=== PATIENT | female | born 1935 | race Caucasian/White ===

== ENCOUNTER 2020-09-26 17:49 | Inpatient (IN) | payer OTHER ==
[~2020-09-26] VITALS: Ht 154.9 cm; Wt 77.3 kg
[~2020-09-26 17:49] MED LIST: ACETAMINOPHEN &1 TA1 PO; AMLODIPINE BESYL5 MG PO; ARIPIPRAZOLE2 MG PO; CIPRO500 MG PO; LOSARTAN POTAS100 M1 PO; LUMIGAN50 DRP OPH; MELATONIN5 M1 SL; NAPROXEN500 MG PO; OMEPRAZOLE D/R20 MG PO; OPANA ER20 M1 PO
[2020-09-26 17:59] VITALS: BP 183/88
[2020-09-26 18:27] LABS: BILIRUBIN Negative (Negative); BLOOD Negative (Negative); CLARITY Cloudy (Clear); COLOR Yellow (Yellow); GLUCOSE Negative (Negative); KETONE Negative (Negative); LEUKO ESTERASE 3+ (Negative); NITRITE Negative (Negative); SPECIFIC GRAVITY <= 1.005 (1.001-1.030); UROBILINOGEN 0.2 E.U./dl (0.0-1.0)
[2020-09-26 18:50] LABS: BASO # 0.1 10*3/uL (0.0-0.1); BASO % 0.6 % (0.0-1.0); EOS # 0.2 10*3/uL (0.0-0.4); EOS % 1.5 % (1.0-4.0); HEMATOCRIT 37.4 % (37.0-47.0); LYMPH # 3.4 10*3/uL (1.3-4.4); LYMPH % 33.2 % (27.0-41.0); MEAN CORPUSCULAR HGB 29.6 pg (27.0-31.0); MEAN CORPUSCULAR HGB CONC 31.8 g/dl (33.0-37.0); MEAN PLATELET VOLUME 10.1 fl (9.6-12.3); MONO # 0.8 10*3/uL (0.1-1.0); NEUT # 5.9 10*3/uL (2.3-7.9); NEUT % 56.5 % (47.0-73.0); PLATELET COUNT AUTOMATED 391 10*3/uL (130-400); RED BLOOD COUNT 4.02 10*6/uL (4.10-5.10); RED CELL DISTRI WIDTH 13.3 % (0-14.5); WHITE BLOOD COUNT 10.3 10*3/uL (4.8-10.8)
[2020-09-26 18:56] LABS: BACTERIA 4+; WBC TNTC wbc/hpf (0-5)
[2020-09-26 19:01] LABS: ACT PARTIAL THROMBO TIME 22.3 SECONDS (20.0-32.1)
[2020-09-26 19:06] LABS: ALBUMIN 3.5 gm/dl (3.1-4.5); ALKALINE PHOSPHATASE 109 U/L (45-117); BUN 18 mg/dl (7-24); CHLORIDE 100 mmol/L (98-107); CREATININE 1.28 mg/dL (0.55-1.02); LIPASE 282 U/L (73-393); SGOT/AST 11 IU/L (3-35); SGPT/ALT 17 U/L (12-78); SODIUM 132 mmol/L (136-145); TOTAL PROTEIN 7.5 gm/dL (6.4-8.2)
[2020-09-26 19:07] LABS: TROPONIN I < 0.015 ng/ml (<0.045)
[2020-09-26 20:50] VITALS: BP 136/62
[2020-09-26 20:58] VITALS: BP 130/71
[2020-09-26] MEDS ORDERED: BUSPAR5 MG PO (21:35)
[2020-09-26] MEDS ORDERED: MIRTAZAPINE30 M1 PO (21:36)
[2020-09-26] MEDS ORDERED: COZAAR100 MG PO (21:36)
[2020-09-26] MEDS ORDERED: FERROUS SULFAT325 MG PO (21:38)
[2020-09-27] VITALS: BP 144/77
[2020-09-27 06:20] LABS: BASO # 0.1 10*3/uL (0.0-0.1); BASO % 0.7 % (0.0-1.0); EOS # 0.3 10*3/uL (0.0-0.4); EOS % 2.8 % (1.0-4.0); HEMATOCRIT 37.6 % (37.0-47.0); LYMPH # 2.5 10*3/uL (1.3-4.4); LYMPH % 26.6 % (27.0-41.0); MEAN CELL VOLUME 94.5 fl (81.0-99.0); MEAN CORPUSCULAR HGB 29.1 pg (27.0-31.0); MEAN CORPUSCULAR HGB CONC 30.9 g/dl (33.0-37.0); MONO % 10.2 % (3.0-9.0); NEUT # 5.6 10*3/uL (2.3-7.9); NEUT % 59.5 % (47.0-73.0); PLATELET COUNT AUTOMATED 353 10*3/uL (130-400); RED BLOOD COUNT 3.98 10*6/uL (4.10-5.10); RED CELL DISTRI WIDTH 13.2 % (0-14.5); WHITE BLOOD COUNT 9.4 10*3/uL (4.8-10.8)
[2020-09-27 06:43] LABS: ALBUMIN 3.3 gm/dl (3.1-4.5); ALKALINE PHOSPHATASE 99 U/L (45-117); BUN 18 mg/dl (7-24); CHLORIDE 107 mmol/L (98-107); CREATININE 1.02 mg/dL (0.55-1.02); FREE T4 1.16 ng/dl (0.76-1.46); SGPT/ALT 19 U/L (12-78); SODIUM 138 mmol/L (136-145)
[2020-09-27 06:52] LABS: SGOT/AST 8 IU/L (3-35)
[2020-09-27 08:00] VITALS: BP 146/80; BP 146/84
[2020-09-27 12:00] VITALS: BP 138/68
[2020-09-27 16:00] VITALS: BP 153/73
[2020-09-27 20:00] VITALS: BP 143/61
[2020-09-28] VITALS: BP 156/71
[2020-09-28 04:00] VITALS: BP 139/88
[2020-09-28 06:22] LABS: BASO # 0.1 10*3/uL (0.0-0.1); BASO % 0.6 % (0.0-1.0); EOS # 0.3 10*3/uL (0.0-0.4); EOS % 3.4 % (1.0-4.0); HEMATOCRIT 36.8 % (37.0-47.0); LYMPH % 24.2 % (27.0-41.0); MEAN CELL VOLUME 92.9 fl (81.0-99.0); MEAN CORPUSCULAR HGB 29.3 pg (27.0-31.0); MEAN CORPUSCULAR HGB CONC 31.5 g/dl (33.0-37.0); MEAN PLATELET VOLUME 10.1 fl (9.6-12.3); MONO # 0.6 10*3/uL (0.1-1.0); MONO % 7.7 % (3.0-9.0); NEUT # 5.2 10*3/uL (2.3-7.9); NEUT % 63.9 % (47.0-73.0); PLATELET COUNT AUTOMATED 382 10*3/uL (130-400); RED BLOOD COUNT 3.96 10*6/uL (4.10-5.10); RED CELL DISTRI WIDTH 13.4 % (0-14.5); WHITE BLOOD COUNT 8.2 10*3/uL (4.8-10.8)
[2020-09-28 06:41] LABS: BUN 14 mg/dl (7-24); CHLORIDE 111 mmol/L (98-107); CREATININE 0.91 mg/dL (0.55-1.02); SODIUM 141 mmol/L (136-145)
[2020-09-28 08:00] VITALS: BP 175/83
[2020-09-28 12:00] VITALS: BP 139/88
[2020-09-28 20:00] VITALS: BP 158/75
[2020-09-29] VITALS: BP 159/74
[2020-09-29 06:11] LABS: BASO # 0.1 10*3/uL (0.0-0.1); BASO % 0.7 % (0.0-1.0); EOS # 0.4 10*3/uL (0.0-0.4); EOS % 4.7 % (1.0-4.0); HEMATOCRIT 41.7 % (37.0-47.0); LYMPH # 3.1 10*3/uL (1.3-4.4); LYMPH % 35.7 % (27.0-41.0); MEAN CELL VOLUME 94.8 fl (81.0-99.0); MEAN CORPUSCULAR HGB 29.1 pg (27.0-31.0); MEAN CORPUSCULAR HGB CONC 30.7 g/dl (33.0-37.0); MONO # 0.9 10*3/uL (0.1-1.0); MONO % 10.5 % (3.0-9.0); NEUT # 4.1 10*3/uL (2.3-7.9); NEUT % 48.2 % (47.0-73.0); PLATELET COUNT AUTOMATED 358 10*3/uL (130-400); RED CELL DISTRI WIDTH 13.3 % (0-14.5); WHITE BLOOD COUNT 8.6 10*3/uL (4.8-10.8)
[2020-09-29 06:20] LABS: BUN 11 mg/dl (7-24); CHLORIDE 107 mmol/L (98-107); CREATININE 0.86 mg/dL (0.55-1.02); POTASSIUM 3.9 mmol/L (3.5-5.1); SODIUM 140 mmol/L (136-145)
[2020-09-29 08:00] VITALS: BP 164/83
[2020-09-29 12:00] VITALS: BP 167/74
[2020-09-29 16:00] VITALS: BP 109/58
[2020-09-29 20:00] VITALS: BP 153/80
[2020-09-30] VITALS: BP 160/81
[2020-09-30 08:00] VITALS: BP 128/66
[2020-09-30 12:00] VITALS: BP 133/62
[2020-09-30 16:00] VITALS: BP 142/74
[2020-09-30 20:00] VITALS: BP 128/89
[2020-10-01] VITALS: BP 154/71
[2020-10-01 08:00] VITALS: BP 130/67
[2020-10-01 16:00] VITALS: BP 146/76
[2020-10-01 20:00] VITALS: BP 146/61
[2020-10-02] VITALS: BP 150/84
[2020-10-02 06:28] LABS: BASO # 0.1 10*3/uL (0.0-0.1); BASO % 0.8 % (0.0-1.0); EOS # 0.3 10*3/uL (0.0-0.4); EOS % 4.5 % (1.0-4.0); HEMATOCRIT 41.1 % (37.0-47.0); LYMPH # 2.9 10*3/uL (1.3-4.4); MEAN CELL VOLUME 93.4 fl (81.0-99.0); MEAN CORPUSCULAR HGB 28.9 pg (27.0-31.0); MEAN CORPUSCULAR HGB CONC 30.9 g/dl (33.0-37.0); MONO # 0.7 10*3/uL (0.1-1.0); MONO % 8.9 % (3.0-9.0); NEUT # 3.6 10*3/uL (2.3-7.9); NEUT % 47.5 % (47.0-73.0); PLATELET COUNT AUTOMATED 396 10*3/uL (130-400); RED CELL DISTRI WIDTH 13.2 % (0-14.5); WHITE BLOOD COUNT 7.6 10*3/uL (4.8-10.8)
[2020-10-02 06:30] LABS: CREATININE 0.93 mg/dL (0.55-1.02)
[2020-10-02 07:47] VITALS: BP 142/76
[2020-10-02 11:52] VITALS: BP 150/78
[2020-10-02 16:00] VITALS: BP 152/79
[2020-10-02 20:00] VITALS: BP 143/70
[2020-10-03] VITALS: BP 153/85
[2020-10-03 08:00] VITALS: BP 169/79
[2020-10-03 12:00] VITALS: BP 144/62
[2020-10-03] MEDS ORDERED: HYDROCODONE-AC1 EACH PO (12:17)
[2020-10-03] MEDS ORDERED: OXYMORPHONE HCL20 MG PO (12:17)
== END 2020-10-03 14:31 | DRG 689 ==
LOC: ED 17:49 → 5E 19:45 → EDHOLD 19:45 → 5E 20:07
PROVIDERS: Emergency Medicine; Hospitalist; Internal Medicine; ADMIT Internal Medicine; ATTEND Internal Medicine
DX: N39.0 Urinary tract infection, site not specified (principal); N17.0 Acute kidney failure with tubular necrosis; E87.1 Hypo-osmolality and hyponatremia; E87.2 Acidosis; I12.9 Hypertensive chronic kidney disease with stage 1 through stage 4 chronic kidney disease, or unspecified chronic kidney disease; N18.31 Chronic kidney disease, stage 3a; K21.9 Gastro-esophageal reflux disease without esophagitis; G47.00 Insomnia, unspecified; F03.90 Unspecified dementia, unspecified severity, without behavioral disturbance, psychotic disturbance, mood disturbance, and anxiety; D64.9 Anemia, unspecified; R73.9 Hyperglycemia, unspecified; H40.9 Unspecified glaucoma; M51.36 Other intervertebral disc degeneration, lumbar region; B96.1 Klebsiella pneumoniae [K. pneumoniae] as the cause of diseases classified elsewhere; Z20.822 Contact with and (suspected) exposure to COVID-19; Z98.51 Tubal ligation status; Z88.8 Allergy status to other drugs, medicaments and biological substances; Z90.49 Acquired absence of other specified parts of digestive tract; Z90.710 Acquired absence of both cervix and uterus; Z82.49 Family history of ischemic heart disease and other diseases of the circulatory system

== ENCOUNTER 2021-09-28 19:47 | Emergency (ER) | payer OTHER ==
[~2021-09-28 19:47] MED LIST changes: +BUSPAR5 MG PO; +COZAAR100 MG PO; +FERROUS SULFAT325 MG PO; +HYDROCODONE-AC1 EACH PO; +MIRTAZAPINE30 M1 PO; +OXYMORPHONE HCL20 MG PO
== END 2021-09-28 20:50 | disposition short-term general hospital (02) ==
LOC: ED 19:47
DX: S82.892B Other fracture of left lower leg, initial encounter for open fracture type I or II (principal); Z88.8 Allergy status to other drugs, medicaments and biological substances; Z79.899 Other long term (current) drug therapy; Z90.49 Acquired absence of other specified parts of digestive tract; Z90.710 Acquired absence of both cervix and uterus; Z90.89 Acquired absence of other organs; Z98.51 Tubal ligation status; W18.39XA Other fall on same level, initial encounter; Y93.89 Activity, other specified; Y92.89 Other specified places as the place of occurrence of the external cause; Y99.8 Other external cause status

== ENCOUNTER 2021-10-30 10:15 | Emergency (ER) | payer OTHER ==
[~2021-10-30] VITALS: Ht 154.9 cm; Wt 70.3 kg
[2021-10-30 11:08] LABS: BASO % 0.5 % (0.0-1.0); EOS # 0.6 10*3/uL (0.0-0.4); EOS % 8.2 % (1.0-4.0); HEMATOCRIT 35.5 % (37.0-47.0); LYMPH # 1.9 10*3/uL (1.3-4.4); LYMPH % 23.8 % (27.0-41.0); MEAN CELL VOLUME 89.9 fl (81.0-99.0); MEAN CORPUSCULAR HGB 28.1 pg (27.0-31.0); MEAN CORPUSCULAR HGB CONC 31.3 g/dl (33.0-37.0); MEAN PLATELET VOLUME 9.8 fl (9.6-12.3); MONO # 0.6 10*3/uL (0.1-1.0); MONO % 8.2 % (3.0-9.0); NEUT # 4.6 10*3/uL (2.3-7.9); PLATELET COUNT AUTOMATED 373 10*3/uL (130-400); RED BLOOD COUNT 3.95 10*6/uL (4.10-5.10); RED CELL DISTRI WIDTH 14.3 % (0-14.5); WHITE BLOOD COUNT 7.8 10*3/uL (4.8-10.8)
[2021-10-30] MEDS ORDERED: OXYCODONE HCL5 MG PO (11:16)
[2021-10-30] MEDS ORDERED: HEPARIN SO5000 UNIT4 IM (11:16)
[2021-10-30] MEDS ORDERED: REMERON15 M2 PO (11:17)
[2021-10-30] MEDS ORDERED: ARIPIPRAZOLE5 MG PO (11:18)
[2021-10-30 11:19] LABS: ACT PARTIAL THROMBO TIME 25.6 SECONDS (20.0-32.1)
[2021-10-30] MEDS ORDERED: LATANOPROST2.5 ML OU (11:19)
[2021-10-30] MEDS ORDERED: MIRALAX119 GM PO (11:20)
[2021-10-30 11:22] LABS: ALKALINE PHOSPHATASE 105 U/L (45-117); BUN 23 mg/dl (7-24); CHLORIDE 102 mmol/L (98-107); CREATININE 0.76 mg/dL (0.55-1.02); POTASSIUM 4.5 mmol/L (3.5-5.1); SGOT/AST 14 IU/L (3-35); SGPT/ALT 18 U/L (12-78); SODIUM 137 mmol/L (136-145); TOTAL PROTEIN 7.1 gm/dL (6.4-8.2)
[2021-10-30] MEDS ORDERED: ANUSOL HC30 GM PO (11:59)
== END 2021-10-30 12:05 ==
LOC: ED 10:15
PROVIDERS: Family Medicine
DX: K64.9 Unspecified hemorrhoids (principal); Z88.8 Allergy status to other drugs, medicaments and biological substances; Z79.899 Other long term (current) drug therapy; Z90.710 Acquired absence of both cervix and uterus; Z90.49 Acquired absence of other specified parts of digestive tract; Z90.89 Acquired absence of other organs; Z98.890 Other specified postprocedural states; Z98.51 Tubal ligation status

== ENCOUNTER 2022-02-10 09:45 | Emergency (ER) | payer OTHER ==
[~2022-02-10 09:45] MED LIST changes: +ANUSOL HC30 GM PO; +ARIPIPRAZOLE5 MG PO; +HEPARIN SO5000 UNIT4 IM; +LATANOPROST2.5 ML OU; +MIRALAX119 GM PO; +OXYCODONE HCL5 MG PO; +REMERON15 M2 PO
[2022-02-10 10:36] LABS: BASO % 0.4 % (0.0-1.0); EOS # 0.2 10*3/uL (0.0-0.4); EOS % 1.8 % (1.0-4.0); HEMATOCRIT 39.6 % (37.0-47.0); LYMPH # 1.2 10*3/uL (1.3-4.4); LYMPH % 12.1 % (27.0-41.0); MEAN CORPUSCULAR HGB 27.7 pg (27.0-31.0); MEAN CORPUSCULAR HGB CONC 30.8 g/dl (33.0-37.0); MEAN PLATELET VOLUME 9.8 fl (9.6-12.3); MONO # 0.5 10*3/uL (0.1-1.0); MONO % 4.7 % (3.0-9.0); NEUT # 7.6 10*3/uL (2.3-7.9); NEUT % 80.3 % (47.0-73.0); PLATELET COUNT AUTOMATED 419 10*3/uL (130-400); RED CELL DISTRI WIDTH 14.7 % (0-14.5); WHITE BLOOD COUNT 9.5 10*3/uL (4.8-10.8)
[2022-02-10 10:52] LABS: BUN 25 mg/dl (7-24); CHLORIDE 105 mmol/L (98-107); CREATININE 0.87 mg/dL (0.55-1.02); POTASSIUM 4.5 mmol/L (3.5-5.1); SODIUM 136 mmol/L (136-145)
[2022-02-10] MEDS ORDERED: CEPHALEXIN500 M1 PO (13:25)
== END 2022-02-10 13:22 ==
LOC: ED 09:45
PROVIDERS: Emergency Medicine
DX: L95.8 Other vasculitis limited to the skin (principal); Z90.49 Acquired absence of other specified parts of digestive tract; Z90.710 Acquired absence of both cervix and uterus; Z98.890 Other specified postprocedural states; Z79.899 Other long term (current) drug therapy; Z88.1 Allergy status to other antibiotic agents